=== PATIENT | female | born 1980 | race Caucasian/White ===

== ENCOUNTER → 2023-05-22 09:21 | Outpatient (REF) | payer BC, SELFPAY | LOC: RAD 09:21 | PROVIDERS: ATTENDING PHYSICIAN Physician Assistant Medical; FAMILY PHYSICIAN Internal Medicine | DX: E04.9 Nontoxic goiter, unspecified (principal) | CPT/HCPCS: 76536 ==

== ENCOUNTER → 2023-06-06 09:28 | Outpatient (REF) | payer BC, SELFPAY | LOC: RADI 09:28 | PROVIDERS: ATTENDING PHYSICIAN Physician Assistant Medical; FAMILY PHYSICIAN Internal Medicine | DX: E04.1 Nontoxic single thyroid nodule (principal) | CPT/HCPCS: 88173; 10005 ==